=== PATIENT | female | born 1985 | race Hispanic/Latino ===

== ENCOUNTER 2022-07-28 14:16 | Inpatient (IN) | payer SELFPAY ==
[2022-07-28] MEDS ORDERED: Acetaminophen 325 MG TAB PO PRN (16:10)
[2022-07-28] MEDS ORDERED: hydrALAZINE 20 MG/ML VIAL SLOW IVP PRN (16:18)
[2022-07-28] MEDS ORDERED: Dextrose 50% Abboject 50 ML SYRINGE SLOW IVP PRN (16:19)
[2022-07-28] MEDS ORDERED: Dextrose 5% in Water 1,000 ML IV PRN (16:19)
[2022-07-28] MEDS: methylPREDNISolone Sod Succ/PF 125 MG/2 ML VIAL IVP SCH (19:46)
[2022-07-28] MEDS: Famotidine 20 MG TAB PO SCH (20:24)
[2022-07-28] MEDS: Atorvastatin Calcium 20 MG TAB PO SCH (20:24)
[2022-07-28] MEDS: Gabapentin 300 MG CAP PO SCH (20:24)
[2022-07-28] MEDS: HumaLOG 300 UNITS/3 ML VIAL SC PRN (20:47)
[2022-07-29 03:43] LABS: #Monocytes 0.3 10x3/uL (0.0-1.1); #Neutrophils 4.5 10x3/uL (1.5-8.4); %Basophils 0.5 % (0.0-2.0); %Lymphocytes 11.6 % (18.0-47.0); %Monocytes 5.4 % (0.0-10.0); %Neutrophils 81.4 % (40.0-75.0); Hemoglobin 14.4 g/dL (12.0-15.5); Mean Corpuscular HGB CONC 29.8 g/dL (32.0-36.0); Mean Corpuscular Hemoglobin 26.6 pg (27.0-33.0); Mean Corpuscular Volume 89.1 fl (81.6-98.3); Mean Platelet Volume 9.9 fl (7.4-10.4); Platelet Count 196 10x3/uL (150-450); RBC Distribution Width 15.9 % (11.5-14.5); Red Blood Cell (RBC) Count 5.42 10x6/uL (3.90-5.03); White Blood Cell (WBC) Count 5.6 10x3/uL (3.5-10.5)
[2022-07-29 03:58] LABS: Anion Gap 15 mmol/L (10-20); BUN (Urea Nitrogen) 12 mg/dL (7.0-18.7); Calc. Creatinine Clearance 280 mL/min (70-130); Calcium 8.9 mg/dL (7.8-10.44); Carbon Dioxide 27 mmol/L (22-29); Chloride 103 mmol/L (98-107); Estimated GFR 111; Glucose 279 mg/dL (70-105); Potassium 4.7 mmol/L (3.5-5.1); Sodium 140 mmol/L (136-145)
[2022-07-29] MEDS: methylPREDNISolone Sod Succ/PF 125 MG/2 ML VIAL IVP SCH ×2 (04:48→11:13)
[2022-07-29 04:51] LABS: Anisocytosis SLIGHT = 6-15 cells (100X) (0-5/hpf); Macrocytosis SLIGHT = 6-15 cells (100X) (0-5/hpf); Microcytosis SLIGHT = 6-15 cells (100X) (0-5/hpf); Platelet Morphology Comment Appears Adequate; Stomatocytes SLIGHT = 2-5 cells (100X) (0-1/hpf)
[2022-07-29] MEDS: Lisinopril 10 MG TAB PO SCH (08:29)
[2022-07-29] MEDS: Citalopram 20 MG TAB PO SCH (08:29)
[2022-07-29] MEDS: metFORMIN 500 MG TAB PO SCH ×2 (08:29→17:20)
[2022-07-29] MEDS: glipiZIDE 10 MG TAB PO SCH (08:29)
[2022-07-29] MEDS ORDERED: guaiFENesin/Codeine Phosphate 100 mg/10 mg 5 ml UD Cup PO PRN (10:03)
[2022-07-29] MEDS: Nicotine 21 MG PATCH TD SCH (10:27)
[2022-07-29] MEDS: HumaLOG 300 UNITS/3 ML VIAL SC PRN ×2 (11:30→17:21)
[2022-07-29] MEDS: cefTRIAXone\\ROCEPHIN 1 GM in Sodium Chloride 0.9% 100 ML IVPB SCH (12:30)
[2022-07-29] MEDS: Azithromycin 500 MG in Sodium Chloride 0.9% 250 ML 250 ML IVPB SCH (13:06)
[2022-07-29] MEDS: Atorvastatin Calcium 20 MG TAB PO SCH (20:58)
[2022-07-29] MEDS: Gabapentin 300 MG CAP PO SCH (20:59)
[2022-07-29] MEDS: Famotidine 20 MG TAB PO SCH (21:01)
[2022-07-30] MEDS: methylPREDNISolone Sod Succ 40 MG VIAL IVP SCH ×2 (01:03→06:32)
[2022-07-30] MEDS: Lorazepam 0.5 MG TAB PO PRN ×2 (05:37→22:17)
[2022-07-30] MEDS: methylPREDNISolone Sod Succ/PF 125 MG/2 ML VIAL IVP SCH ×2 (05:37→22:17)
[2022-07-30] MEDS: metFORMIN 500 MG TAB PO SCH ×2 (09:10→17:57)
[2022-07-30] MEDS: Nicotine 21 MG PATCH TD SCH (09:10)
[2022-07-30] MEDS: glipiZIDE 10 MG TAB PO SCH (09:11)
[2022-07-30] MEDS: Lisinopril 10 MG TAB PO SCH (09:11)
[2022-07-30] MEDS: Citalopram 20 MG TAB PO SCH (09:11)
[2022-07-30] MEDS: HumaLOG 300 UNITS/3 ML VIAL SC PRN ×2 (11:08→18:00)
[2022-07-30] MEDS: cefTRIAXone\\ROCEPHIN 1 GM in Sodium Chloride 0.9% 100 ML IVPB SCH (13:57)
[2022-07-30] MEDS: Azithromycin 500 MG in Sodium Chloride 0.9% 250 ML 250 ML IVPB SCH (15:05)
[2022-07-30] MEDS: Gabapentin 300 MG CAP PO SCH (22:17)
[2022-07-30] MEDS: Atorvastatin Calcium 20 MG TAB PO SCH (22:17)
[2022-07-30] MEDS: Famotidine 20 MG TAB PO SCH (22:17)
[2022-07-31 07:58] LABS: #Monocytes 0.7 10x3/uL (0.0-1.1); #Neutrophils 5.4 10x3/uL (1.5-8.4); %Basophils 0.2 % (0.0-2.0); %Eosinophils 0.2 % (0.0-6.0); %Lymphocytes 26.6 % (18.0-47.0); %Monocytes 8.4 % (0.0-10.0); %Neutrophils 64.1 % (40.0-75.0); Hemoglobin 14.6 g/dL (12.0-15.5); Mean Corpuscular HGB CONC 29.2 g/dL (32.0-36.0); Mean Corpuscular Hemoglobin 26.4 pg (27.0-33.0); Mean Corpuscular Volume 90.3 fl (81.6-98.3); Mean Platelet Volume 10.5 fl (7.4-10.4); Platelet Count 195 10x3/uL (150-450); RBC Distribution Width 15.9 % (11.5-14.5); Red Blood Cell (RBC) Count 5.54 10x6/uL (3.90-5.03); White Blood Cell (WBC) Count 8.5 10x3/uL (3.5-10.5)
[2022-07-31 08:06] LABS: Carbon Dioxide 33 mmol/L (22-29); Chloride 96 mmol/L (98-107); Sodium 138 mmol/L (136-145)
[2022-07-31 08:07] LABS: Anion Gap 13 mmol/L (10-20); BUN (Urea Nitrogen) 10 mg/dL (7.0-18.7); Calc. Creatinine Clearance 263 mL/min (70-130); Calcium 8.7 mg/dL (7.8-10.44); Estimated GFR 116; Glucose 168 mg/dL (70-105)
[2022-07-31] MEDS: metFORMIN 500 MG TAB PO SCH (08:27)
[2022-07-31] MEDS: glipiZIDE 10 MG TAB PO SCH (08:27)
[2022-07-31] MEDS: Citalopram 20 MG TAB PO SCH (08:28)
[2022-07-31] MEDS: methylPREDNISolone Sod Succ/PF 125 MG/2 ML VIAL IVP SCH (08:28)
[2022-07-31] MEDS: Lisinopril 10 MG TAB PO SCH (08:28)
[2022-07-31] MEDS: Nicotine 21 MG PATCH TD SCH (08:30)
[2022-07-31] MEDS ORDERED: Iopamidol 370 76% 100 ML VIAL ONE (09:12)
[2022-07-31] MEDS ORDERED: Doxycycline 100 MG in Sodium Chloride 0.9% 100 ML IVPB SCH (09:45)
[2022-07-31 11:00] LABS: Actual Bicarbonate (HCO3a) 35.7 mEq/L (22-28); Base Excess (BEa) 7.4 mEq/L (-2.0 to +3.0); CO2 Tension 67.2 mmHg (35.0-45.0); Calcium, Ionized (arterial) 1.14 mmol/L (1.12-1.30); Carboxyhemoglobin (COHb) 1.1 gm% (0.0-3.0); Hemoglobin (Hb) 14.6 g/dL (12.0-16.0); O2 Tension (PaO2), arterial 104.1 mmHg (80.0-100.0); Potassium - ABG Lab 4.3 mmol/L (3.70-5.30); Puncture Site RRA; pH, Arterial 7.34 (7.35-7.45)
[2022-07-31] MEDS: methylPREDNISolone Sod Succ 40 MG VIAL IVP SCH ×3 (11:12→23:37)
[2022-07-31] MEDS: Ipratropium Bromide 2.5 ml Neb NEB SCH ×4 (11:26→23:20)
[2022-07-31] MEDS: cefTRIAXone\\ROCEPHIN 1 GM in Sodium Chloride 0.9% 100 ML IVPB SCH (13:10)
[2022-07-31] MEDS: HumaLOG 300 UNITS/3 ML VIAL SC PRN ×2 (15:41→20:13)
[2022-07-31 17:48] LABS: Magnesium 1.7 mg/dL (1.6-2.6)
[2022-07-31 18:13] LABS: SARS-CoV-2 NAA Rapid Test Not Detected (NotDetected)
[2022-07-31] MEDS: Atorvastatin Calcium 20 MG TAB PO SCH (20:05)
[2022-07-31] MEDS: Gabapentin 300 MG CAP PO SCH (20:06)
[2022-07-31] MEDS: Doxycycline 100 MG in Sodium Chloride 0.9% 100 ML IVPB SCH (21:11)
[2022-08-01] MEDS ORDERED: Zolpidem Tartrate 5 MG TAB PO SCH (01:15)
[2022-08-01] MEDS: Ipratropium Bromide 2.5 ml Neb NEB SCH ×2 (02:00→06:30)
[2022-08-01 04:00] LABS: ALT (SGPT) 22 U/L (8-55); AST (SGOT) 16 U/L (5-34); Albumin 3.7 g/dL (3.5-5.0); Alkaline Phosphatase 80 U/L (40-110); Anion Gap 18 mmol/L (10-20); BUN (Urea Nitrogen) 18 mg/dL (7.0-18.7); Bilirubin, Total 0.3 mg/dL (0.2-1.2); Calc. Creatinine Clearance 238 mL/min (70-130); Calcium 9.5 mg/dL (7.8-10.44); Carbon Dioxide 27 mmol/L (22-29); Chloride 98 mmol/L (98-107); Estimated GFR 106; Globulin 3.8 g/dL (2.4-3.5); Glucose 267 mg/dL (70-105); Potassium 4.4 mmol/L (3.5-5.1); Protein, Total 7.5 g/dL (6.0-8.3); Sodium 139 mmol/L (136-145)
[2022-08-01 04:41] LABS: #Monocytes 0.2 10x3/uL (0.0-1.1); #Neutrophils 6.6 10x3/uL (1.5-8.4); %Basophils 0.2 % (0.0-2.0); %Lymphocytes 15.5 % (18.0-47.0); %Monocytes 2.6 % (0.0-10.0); %Neutrophils 81.2 % (40.0-75.0); Hemoglobin 14.6 g/dL (12.0-15.5); Mean Corpuscular HGB CONC 29.7 g/dL (32.0-36.0); Mean Corpuscular Hemoglobin 25.9 pg (27.0-33.0); Mean Corpuscular Volume 87.2 fl (81.6-98.3); Mean Platelet Volume 10.3 fl (7.4-10.4); Platelet Count 202 10x3/uL (150-450); RBC Distribution Width 15.2 % (11.5-14.5); Red Blood Cell (RBC) Count 5.63 10x6/uL (3.90-5.03); White Blood Cell (WBC) Count 8.2 10x3/uL (3.5-10.5)
[2022-08-01 04:54] LABS: Band 10 % (5-11); Lymphocytes 15 % (21-51); Monocytes 4 % (0-10)
[2022-08-01 04:55] LABS: Neutrophil 71 % (42-75)
[2022-08-01 04:56] LABS: Anisocytosis SLIGHT = 6-15 cells (100X) (0-5/hpf)
[2022-08-01 04:57] LABS: Microcytosis SLIGHT = 6-15 cells (100X) (0-5/hpf); Platelet Morphology Comment Appears Adequate
[2022-08-01] MEDS: methylPREDNISolone Sod Succ 40 MG VIAL IVP SCH ×4 (05:17→23:07)
[2022-08-01] MEDS: HumaLOG 300 UNITS/3 ML VIAL SC PRN ×5 (05:57→20:13)
[2022-08-01] MEDS: Citalopram 20 MG TAB PO SCH (08:28)
[2022-08-01] MEDS: Lisinopril 10 MG TAB PO SCH (08:29)
[2022-08-01] MEDS: Doxycycline 100 MG in Sodium Chloride 0.9% 100 ML IVPB SCH ×2 (08:30→20:00)
[2022-08-01] MEDS: Nicotine 21 MG PATCH TD SCH (09:59)
[2022-08-01] MEDS: Ipratropium/Albuterol 3 ML NEB NEB SCH ×4 (10:43→22:30)
[2022-08-01] MEDS: cefTRIAXone\\ROCEPHIN 1 GM in Sodium Chloride 0.9% 100 ML IVPB SCH (12:18)
[2022-08-01 18:44] LABS: Legionella Urinary Ag Negative (Negative); Strep pneumo Urine Ag NEGATIVE (NEGATIVE)
[2022-08-01] MEDS: Gabapentin 300 MG CAP PO SCH (20:00)
[2022-08-01] MEDS: Atorvastatin Calcium 20 MG TAB PO SCH (20:00)
[2022-08-01] MEDS ORDERED: Lantus 1000 UNITS/10 ML VIAL SC SCH (21:00)
[2022-08-01 22:13] LABS: Hemoglobin A1c 8.9 % (4.0-6.0)
[2022-08-02] MEDS: Ipratropium/Albuterol 3 ML NEB NEB SCH ×5 (02:53→19:39)
[2022-08-02 04:03] LABS: Anion Gap 14 mmol/L (10-20); BUN (Urea Nitrogen) 17 mg/dL (7.0-18.7); Calc. Creatinine Clearance 252 mL/min (70-130); Calcium 9.6 mg/dL (7.8-10.44); Carbon Dioxide 30 mmol/L (22-29); Chloride 99 mmol/L (98-107); Estimated GFR 113; Glucose 264 mg/dL (70-105); Potassium 4.6 mmol/L (3.5-5.1); Sodium 138 mmol/L (136-145)
[2022-08-02 04:07] LABS: #Monocytes 0.2 10x3/uL (0.0-1.1); #Neutrophils 7.8 10x3/uL (1.5-8.4); %Basophils 0.2 % (0.0-2.0); %Monocytes 2.4 % (0.0-10.0); %Neutrophils 83.9 % (40.0-75.0); Hemoglobin 15.5 g/dL (12.0-15.5); Mean Corpuscular HGB CONC 30.6 g/dL (32.0-36.0); Mean Corpuscular Hemoglobin 26.4 pg (27.0-33.0); Mean Corpuscular Volume 86.2 fl (81.6-98.3); Mean Platelet Volume 10.7 fl (7.4-10.4); Platelet Count 224 10x3/uL (150-450); RBC Distribution Width 15.1 % (11.5-14.5); Red Blood Cell (RBC) Count 5.87 10x6/uL (3.90-5.03); White Blood Cell (WBC) Count 9.3 10x3/uL (3.5-10.5)
[2022-08-02] MEDS: methylPREDNISolone Sod Succ 40 MG VIAL IVP SCH (05:43)
[2022-08-02] MEDS: HumaLOG 300 UNITS/3 ML VIAL SC PRN ×4 (06:00→20:53)
[2022-08-02] MEDS: Losartan 25 MG TAB PO SCH (08:01)
[2022-08-02] MEDS: Citalopram 20 MG TAB PO SCH (08:01)
[2022-08-02] MEDS: Doxycycline 100 MG in Sodium Chloride 0.9% 100 ML IVPB SCH ×2 (08:01→20:52)
[2022-08-02] MEDS: Nicotine 21 MG PATCH TD SCH (09:09)
[2022-08-02] MEDS: cefTRIAXone\\ROCEPHIN 1 GM in Sodium Chloride 0.9% 100 ML IVPB SCH (12:25)
[2022-08-02] MEDS ORDERED: Amlodipine 5 MG TAB PO SCH (14:30)
[2022-08-02] MEDS: Atorvastatin Calcium 20 MG TAB PO SCH (20:51)
[2022-08-02] MEDS: Gabapentin 300 MG CAP PO SCH (20:52)
[2022-08-02] MEDS: Lantus 1000 UNITS/10 ML VIAL SC SCH (20:53)
[2022-08-03] MEDS: Ipratropium/Albuterol 3 ML NEB NEB SCH ×6 (00:27→20:48)
[2022-08-03 03:43] LABS: #Monocytes 0.8 10x3/uL (0.0-1.1); #Neutrophils 9.5 10x3/uL (1.5-8.4); %Basophils 0.1 % (0.0-2.0); %Eosinophils 0.1 % (0.0-6.0); %Lymphocytes 23.7 % (18.0-47.0); %Neutrophils 69.5 % (40.0-75.0); Hemoglobin 15.5 g/dL (12.0-15.5); Mean Corpuscular HGB CONC 30.3 g/dL (32.0-36.0); Mean Corpuscular Hemoglobin 26.3 pg (27.0-33.0); Mean Corpuscular Volume 86.6 fl (81.6-98.3); Mean Platelet Volume 10.5 fl (7.4-10.4); Platelet Count 230 10x3/uL (150-450); RBC Distribution Width 15.8 % (11.5-14.5); White Blood Cell (WBC) Count 13.7 10x3/uL (3.5-10.5)
[2022-08-03 03:52] LABS: ALT (SGPT) 20 U/L (8-55); AST (SGOT) 22 U/L (5-34); Albumin 3.6 g/dL (3.5-5.0); Alkaline Phosphatase 67 U/L (40-110); Anion Gap 14 mmol/L (10-20); BUN (Urea Nitrogen) 20 mg/dL (7.0-18.7); Bilirubin, Total 0.3 mg/dL (0.2-1.2); Calc. Creatinine Clearance 248 mL/min (70-130); Calcium 9.2 mg/dL (7.8-10.44); Carbon Dioxide 30 mmol/L (22-29); Chloride 99 mmol/L (98-107); Estimated GFR 111; Globulin 3.5 g/dL (2.4-3.5); Glucose 149 mg/dL (70-105); Potassium 4.2 mmol/L (3.5-5.1); Protein, Total 7.1 g/dL (6.0-8.3); Sodium 139 mmol/L (136-145)
[2022-08-03] MEDS: HumaLOG 300 UNITS/3 ML VIAL SC PRN ×5 (05:38→20:57)
[2022-08-03] MEDS: Losartan 25 MG TAB PO SCH (08:28)
[2022-08-03] MEDS: Citalopram 20 MG TAB PO SCH (08:28)
[2022-08-03] MEDS: Doxycycline 100 MG in Sodium Chloride 0.9% 100 ML IVPB SCH ×2 (08:29→20:58)
[2022-08-03] MEDS ORDERED: Amlodipine 5 MG TAB PO SCH (09:00)
[2022-08-03] MEDS: Nicotine 21 MG PATCH TD SCH (09:29)
[2022-08-03] MEDS: cefTRIAXone\\ROCEPHIN 1 GM in Sodium Chloride 0.9% 100 ML IVPB SCH (12:09)
[2022-08-03] MEDS: Atorvastatin Calcium 20 MG TAB PO SCH (20:55)
[2022-08-03] MEDS: Gabapentin 300 MG CAP PO SCH (20:56)
[2022-08-03] MEDS: Lantus 1000 UNITS/10 ML VIAL SC SCH (20:57)
[2022-08-04] MEDS: Ipratropium/Albuterol 3 ML NEB NEB SCH ×7 (00:08→22:40)
[2022-08-04 04:38] LABS: #Eosinphils 0.1 10x3/uL (0.0-0.5); #Monocytes 0.7 10x3/uL (0.0-1.1); #Neutrophils 9.2 10x3/uL (1.5-8.4); %Basophils 0.1 % (0.0-2.0); %Eosinophils 0.7 % (0.0-6.0); %Lymphocytes 25.6 % (18.0-47.0); %Monocytes 5.3 % (0.0-10.0); %Neutrophils 67.9 % (40.0-75.0); Hemoglobin 14.9 g/dL (12.0-15.5); Mean Corpuscular Hemoglobin 26.2 pg (27.0-33.0); Mean Corpuscular Volume 87.2 fl (81.6-98.3); Mean Platelet Volume 10.1 fl (7.4-10.4); Platelet Count 211 10x3/uL (150-450); RBC Distribution Width 15.2 % (11.5-14.5); Red Blood Cell (RBC) Count 5.69 10x6/uL (3.90-5.03); White Blood Cell (WBC) Count 13.5 10x3/uL (3.5-10.5)
[2022-08-04 04:52] LABS: Anion Gap 13 mmol/L (10-20); BUN (Urea Nitrogen) 15 mg/dL (7.0-18.7); Calc. Creatinine Clearance 274 mL/min (70-130); Calcium 8.7 mg/dL (7.8-10.44); Carbon Dioxide 30 mmol/L (22-29); Chloride 99 mmol/L (98-107); Estimated GFR 117; Glucose 154 mg/dL (70-105); Magnesium 1.8 mg/dL (1.6-2.6); Sodium 138 mmol/L (136-145)
[2022-08-04 05:15] VITALS: BMI 56.6
[2022-08-04] MEDS: methylPREDNISolone Sod Succ/PF 125 MG/2 ML VIAL IVP SCH (07:20)
[2022-08-04] MEDS: Doxycycline 100 MG in Sodium Chloride 0.9% 100 ML IVPB SCH ×3 (07:40→20:46)
[2022-08-04] MEDS: Citalopram 20 MG TAB PO SCH (07:40)
[2022-08-04] MEDS: Losartan 25 MG TAB PO SCH (07:40)
[2022-08-04 07:58] LABS: Actual Bicarbonate (HCO3v) 32 mEq/L (22-28); Base Excess 5.1 mEq/L (-2 - +2); Chloride (VBG) 99 mmol/L (98-106); Hemoglobin (Hb) 15.8 g/dL (11.7-15.5); Potassium (VBG) 4.09 mmol/L (3.70-5.30); Puncture Site Other Site; RapidComm Collect By CBN; Sodium 136.5 mmol/L (133-146); pH (venous) 7.39 (7.32-7.43)
[2022-08-04] MEDS: HumaLOG 300 UNITS/3 ML VIAL SC PRN ×4 (08:23→20:30)
[2022-08-04] MEDS: Nicotine 21 MG PATCH TD SCH (09:02)
[2022-08-04] MEDS: cefTRIAXone\\ROCEPHIN 1 GM in Sodium Chloride 0.9% 100 ML IVPB SCH (12:22)
[2022-08-04] MEDS ORDERED: cefTRIAXone\\ROCEPHIN 1 GM in Sodium Chloride 0.9% 100 ML IVPB SCH (14:48)
[2022-08-04] MEDS: Lantus 1000 UNITS/10 ML VIAL SC SCH (20:29)
[2022-08-04] MEDS: Atorvastatin Calcium 20 MG TAB PO SCH (20:32)
[2022-08-04] MEDS: Gabapentin 300 MG CAP PO SCH (20:32)
[2022-08-05] MEDS: Ipratropium/Albuterol 3 ML NEB NEB SCH ×6 (03:05→22:59)
[2022-08-05 03:22] LABS: #Eosinphils 0.2 10x3/uL (0.0-0.5); #Monocytes 0.6 10x3/uL (0.0-1.1); #Neutrophils 9.8 10x3/uL (1.5-8.4); %Basophils 0.2 % (0.0-2.0); %Eosinophils 1.1 % (0.0-6.0); %Lymphocytes 19.5 % (18.0-47.0); %Monocytes 4.5 % (0.0-10.0); %Neutrophils 74.3 % (40.0-75.0); Mean Corpuscular HGB CONC 29.8 g/dL (32.0-36.0); Mean Corpuscular Hemoglobin 25.7 pg (27.0-33.0); Mean Corpuscular Volume 86.3 fl (81.6-98.3); Mean Platelet Volume 10.1 fl (7.4-10.4); Platelet Count 208 10x3/uL (150-450); RBC Distribution Width 15.2 % (11.5-14.5); Red Blood Cell (RBC) Count 5.84 10x6/uL (3.90-5.03); White Blood Cell (WBC) Count 13.2 10x3/uL (3.5-10.5)
[2022-08-05 03:53] LABS: Actual Bicarbonate (HCO3v) 31 mEq/L (22-28); Base Excess 4.4 mEq/L (-2 - +2); Chloride (VBG) 97 mmol/L (98-106); Hemoglobin (Hb) 15.9 g/dL (11.7-15.5); Potassium (VBG) 4.08 mmol/L (3.70-5.30); Puncture Site Other Site; RapidComm Collect By LAB; Sodium 135.9 mmol/L (133-146); pH (venous) 7.37 (7.32-7.43)
[2022-08-05 04:02] LABS: Anion Gap 13 mmol/L (10-20); BUN (Urea Nitrogen) 10 mg/dL (7.0-18.7); Calc. Creatinine Clearance 278 mL/min (70-130); Calcium 8.7 mg/dL (7.8-10.44); Carbon Dioxide 30 mmol/L (22-29); Chloride 98 mmol/L (98-107); Estimated GFR 117; Glucose 171 mg/dL (70-105); Potassium 4.2 mmol/L (3.5-5.1); Sodium 137 mmol/L (136-145)
[2022-08-05] MEDS: Nicotine 21 MG PATCH TD SCH (09:05)
[2022-08-05] MEDS: Citalopram 20 MG TAB PO SCH (09:06)
[2022-08-05] MEDS: Doxycycline 100 MG in Sodium Chloride 0.9% 100 ML IVPB SCH ×2 (09:06→09:25)
[2022-08-05] MEDS: Losartan 25 MG TAB PO SCH (09:20)
[2022-08-05] MEDS: HumaLOG 300 UNITS/3 ML VIAL SC PRN ×2 (11:39→20:58)
[2022-08-05] MEDS: Atorvastatin Calcium 20 MG TAB PO SCH (20:57)
[2022-08-05] MEDS: Gabapentin 300 MG CAP PO SCH (20:57)
[2022-08-05] MEDS: Doxycycline 100 MG CAP PO SCH (20:58)
[2022-08-05] MEDS: Lantus 1000 UNITS/10 ML VIAL SC SCH (20:58)
[2022-08-05 21:18] VITALS: BP 125/70; TEMP 98.6
[2022-08-06 03:53] LABS: #Eosinphils 0.2 10x3/uL (0.0-0.5); #Monocytes 0.5 10x3/uL (0.0-1.1); #Neutrophils 8.8 10x3/uL (1.5-8.4); %Basophils 0.2 % (0.0-2.0); %Eosinophils 1.2 % (0.0-6.0); %Lymphocytes 21.5 % (18.0-47.0); %Monocytes 3.9 % (0.0-10.0); %Neutrophils 72.9 % (40.0-75.0); Hemoglobin 14.9 g/dL (12.0-15.5); Mean Corpuscular HGB CONC 30.2 g/dL (32.0-36.0); Mean Corpuscular Hemoglobin 25.9 pg (27.0-33.0); Mean Corpuscular Volume 85.6 fl (81.6-98.3); Platelet Count 192 10x3/uL (150-450); RBC Distribution Width 14.9 % (11.5-14.5); Red Blood Cell (RBC) Count 5.76 10x6/uL (3.90-5.03)
[2022-08-06 04:07] LABS: Anion Gap 16 mmol/L (10-20); BUN (Urea Nitrogen) 9 mg/dL (7.0-18.7); Calc. Creatinine Clearance 302 mL/min (70-130); Calcium 8.8 mg/dL (7.8-10.44); Carbon Dioxide 28 mmol/L (22-29); Chloride 98 mmol/L (98-107); Estimated GFR 120; Glucose 157 mg/dL (70-105); Potassium 3.7 mmol/L (3.5-5.1); Sodium 138 mmol/L (136-145)
[2022-08-06] MEDS: Ipratropium/Albuterol 3 ML NEB NEB SCH ×3 (04:17→11:05)
[2022-08-06] MEDS: Doxycycline 100 MG CAP PO SCH (08:44)
[2022-08-06] MEDS: Citalopram 20 MG TAB PO SCH (08:44)
[2022-08-06] MEDS: Losartan 25 MG TAB PO SCH (08:44)
[2022-08-06] MEDS: Nicotine 21 MG PATCH TD SCH (08:44)
[2022-08-06] MEDS: HumaLOG 300 UNITS/3 ML VIAL SC PRN (12:18)
== END 2022-08-06 14:00 | disposition left against medical advice (07) | DRG 193 ==
LOC: CSHICU 15:23 → CSHTELE 07-29 15:37 → CSHIMCU 07-31 11:09
PROVIDERS: ADMIT Internal Medicine; ATTEND Internal Medicine
PROC: 5A09557 Assistance with Respiratory Ventilation, Greater than 96 Consecutive Hours, Continuous Positive Airway Pressure (ICD-10-PCS; 2022-07-29)
PROC: 4A133R1 Monitoring of Arterial Saturation, Peripheral, Percutaneous Approach (ICD-10-PCS; principal; 2022-07-31)
DX: J18.9 Pneumonia, unspecified organism (principal); J96.21 Acute and chronic respiratory failure with hypoxia; J96.22 Acute and chronic respiratory failure with hypercapnia; J44.1 Chronic obstructive pulmonary disease with (acute) exacerbation; Z68.43 Body mass index [BMI] 50.0-59.9, adult; J45.21 Mild intermittent asthma with (acute) exacerbation; J44.0 Chronic obstructive pulmonary disease with (acute) lower respiratory infection; E66.01 Morbid (severe) obesity due to excess calories; F17.210 Nicotine dependence, cigarettes, uncomplicated; I10 Essential (primary) hypertension; E11.9 Type 2 diabetes mellitus without complications; K21.9 Gastro-esophageal reflux disease without esophagitis; F32.A Depression, unspecified; G47.00 Insomnia, unspecified; Z20.822 Contact with and (suspected) exposure to COVID-19; Z98.890 Other specified postprocedural states; Z91.018 Allergy to other foods; Z79.899 Other long term (current) drug therapy; Z79.84 Long term (current) use of oral hypoglycemic drugs; Z79.51 Long term (current) use of inhaled steroids
CPT/HCPCS: 36415; 36416; 36600; 71275; 80048; 80053; 82805; 83036; 83735; 83880; 84145; 85025; 87449; 87899; 93306; 94640; 94660; 94760; 94762; J0456; J0696; J1650; J1815; J2920; J2930; J3490; J7050; J7611; J7620; Q9967